=== PATIENT | male | born 1970 | race Caucasian/White ===

== ENCOUNTER 2019-10-20 04:13 | Observation (INO) | payer BC, OTHER ==
[~2019-10-20] VITALS: Ht 183 cm; Wt 93.0 kg
[2019-10-20] VITALS (15 sets, daily range): BP systolic 109–175; BP diastolic 69–100
[2019-10-20] MEDS ORDERED: METO50TA7 (04:32)
[2019-10-20] MEDS ORDERED: DIGO250T3 (04:32)
[2019-10-20] MEDS ORDERED: HYDR12.56 (04:32)
[2019-10-20] MEDS ORDERED: LACTATED RINGERS 1,000 ML IV ONE (04:37)
[2019-10-20 04:45] LABS: BASOPHILS % (AUTO) 0 % (0-10); EOSINOPHILS # (AUTO) 0.1 10^3/uL (0.0-0.3); EOSINOPHILS % (AUTO) 1 % (0-10); HEMATOCRIT 44 % (40-54); HEMOGLOBIN 15.5 G/DL (13.3-17.7); LYMPHOCYTES # (AUTO) 2.3 X 10^3 (1.0-4.0); LYMPHOCYTES % (AUTO) 33 % (12-44); MEAN CORPUSCULAR HEMOGLOBIN 29 PG (25-34); MEAN CORPUSCULAR HGB CONC 35 G/DL (32-36); MEAN CORPUSCULAR VOLUME 83 FL (80-99); MEAN PLATELET VOLUME 11.3 FL (7.4-10.4); MONOCYTES # (AUTO) 0.6 X 10^3 (0.0-1.0); MONOCYTES % (AUTO) 8 % (0-12); NEUTROPHILS % (AUTO) 58 % (42-75); PLATELET COUNT 158 10^3/uL (130-400); RED CELL DISTRIBUTION WIDTH 14.1 % (10.0-14.5); WHITE BLOOD COUNT 6.9 10^3/uL (4.3-11.0)
[2019-10-20] MEDS ORDERED: ONDANSETRON 4 MG/2 ML (SDV) Z0FRAN IVP ONE (04:45)
[2019-10-20] MEDS ORDERED: PANTOPRAZOLE 40 MG (PROTONIX) VIAL IV ONE (04:45)
--- NOTE | 2019-10-20 04:45 | NUR ---
urinal provided, urine specime requested.
--- NOTE | 2019-10-20 04:45 | ED Abdominal Pain ---
General Chief Complaint: Cardiac/General Problems Stated Complaint: LOWER CHEST/ABD PAIN Nursing Triage Note: EPIGASTRIC PAIN X3 HRS. VOMITTING X3HRS (4 TIMES) Sepsis Screen: No Definite Risk Source of Information: Patient (MARIA MAJOR DO) History of Present Illness Date Seen by Provider: Oct 20, 2019 Time Seen by Provider: 04:30 Initial Comments PT ARRIVES VIA POV FROM HOME C/O SEVERE EPIGASTRIC PAIN X 3 HOURS--WOKE HIM FROM SLEEP PAIN IS CONSTANT, NOTHING WORSENS OR IMPROVES PAIN STATES PAIN IS SQUEEZING AT TIMES HAS HAD NAUSEA AND VOMITED X 3-4 SINCE PAIN BEGAN NO DIARRHEA, HAD NORMAL BM THIS AFTERNOON NO FEVER NO SHORTNESS OF BREATH NO HISTORY OF SIMILAR PT HAS HISTORY OF ATRIAL FIBRILLATION AND IS NO TOPROL, HCTZ AND DIGOXIN HAD OPEN HEART SURGERY AT AGE 12 FOR TRICUSPID VALVE REPAIR STATES HE HAS BEEN ON DIGOXIN "ALL MY LIFE" PCP: NONE ASSISTANT PARALEGAL: SONYA SALGADO (MARIA MAJOR DO) Allergies and Home Medications Allergies Coded Allergies: No Known Drug Allergies (Unverified , 10/20/19) Patient Home Medication List Home Medication List Reviewed: Yes (LIZET MICHAUD) Review of Systems Review of Systems Constitutional: no symptoms reported EENTM: No Symptoms Reported Respiratory: No Symptoms Reported Cardiovascular: Denies Chest Pain Gastrointestinal: See HPI, Abdominal Pain, Nausea, Vomiting Genitourinary: No Symptoms Reported Musculoskeletal: no symptoms reported Skin: no symptoms reported Psychiatric/Neurological: No Symptoms Reported Endocrine: No Symptoms Reported Hematologic/Lymphatic: No Symptoms Reported (MARIA MAJOR DO) Past Mxceirf-Gesckw-Xbzsao Hx Patient Social History Alcohol Use: Occasionally Uses Number of Drinks Today: 2 Alcohol Beverage of Choice: Beer Recreational Drug Use: No Smoking Status: Never a Smoker 2nd Hand Smoke Exposure: No Recent Foreign Travel: No Contact w/Someone Who Travel: No Recent Infectious Disease Expo: No Recent Hopitalizations: No Physical Abuse: No Sexual Abuse: No Mistreated: No Fear: No (MARIA MAJOR DO) Immunizations Up To Date Tetanus Booster (TDap): Unknown (MARIA MAJOR DO) Seasonal Allergies Seasonal Allergies: No (MARIA MAJOR DO) Past Medical History Surgeries: Yes (OPEN HEART AGE 12 / TRICUSPID VALVE REPAIR) Cardiac Respiratory: No Cardiac: Yes (AFIB-HX OF CARDIOVERSION; TRICUSPID VALVE REPAIR AGE 12) Atrial Fibrillation, Congenital Heart Disease, Hypertension, Valvular Heart Disease Neurological: No Genitourinary: No Gastrointestinal: No Musculoskeletal: No Endocrine: No HEENT: No Cancer: No Psychosocial: No Integumentary: No Blood Disorders: No (MROIAH,MARIA K DO) Physical Exam Vital Signs Vital Signs - First Documented 10/20/19 04:24 Temp 36.4 Pulse 68 Resp 18 B/P (MAP) 155/96 (115) Pulse Ox 100 O2 Delivery Room Air (LIZET MICHAUD) Vital Signs Capillary Refill : Less Than 3 Seconds (MORIAHMARIA K DO) Height/Weight/BMI Height: '" Weight: lbs. oz. kg; 27.00 BMI Method: General Appearance: WD/WN, no apparent distress, other (ANXIOUS) Neck: normal inspection Respiratory: chest non-tender, normal breath sounds, no respiratory distress, no accessory muscle use Cardiovascular: normal peripheral pulses, regular rate, rhythm, no JVD Gastrointestinal: normal bowel sounds, soft, no organomegaly, no pulsatile mass, guarding, tenderness (DIFFUSE TENDERNESS ALL ACROSS UPPER ABDOMEN, BUT IS MOST TENDER IN EPIGASTRIC AREA, WITH GUARDING OF EPIGASTRIC AREA. ); No hernia, No mass Extremities: normal inspection, no pedal edema, normal capillary refill Neurologic/Psychiatric: grocery manager II-XII nml as tested, no motor/sensory deficits, alert, oriented x 3, other (ANXIOUS) Skin: normal color, warm/dry; No rash (MORIAHMARIA K DO) Progress/Results/Core Measures Results/Orders Lab Results Laboratory Tests Test 10/20/19 04:35 10/20/19 05:20 Range/Units White Blood Count 6.9 4.3-11.0 10^3/uL Red Blood Count 5.33 4.35-5.85 10^6/uL Hemoglobin 15.5 13.3-17.7 G/DL Hematocrit 44 40-54 % Mean Corpuscular Volume 83 80-99 FL Mean Corpuscular Hemoglobin 29 25-34 PG Mean Corpuscular Hemoglobin Concent 35 32-36 G/DL Red Cell Distribution Width 14.1 10.0-14.5 % Platelet Count 158 130-400 10^3/uL Mean Platelet Volume 11.3 H 7.4-10.4 FL Neutrophils (%) (Auto) 58 42-75 % Lymphocytes (%) (Auto) 33 12-44 % Monocytes (%) (Auto) 8 0-12 % Eosinophils (%) (Auto) 1 0-10 % Basophils (%) (Auto) 0 0-10 % Neutrophils # (Auto) 4.0 1.8-7.8 X 10^3 Lymphocytes # (Auto) 2.3 1.0-4.0 X 10^3 Monocytes # (Auto) 0.6 0.0-1.0 X 10^3 Eosinophils # (Auto) 0.1 0.0-0.3 10^3/uL Basophils # (Auto) 0.0 0.0-0.1 10^3/uL Prothrombin Time 13.1 12.2-14.7 SEC INR Comment 1.0 0.8-1.4 Activated Partial Thromboplast Time 29 24-35 SEC Sodium Level 137 135-145 MMOL/L Potassium Level 4.2 3.6-5.0 MMOL/L Chloride Level 99 98-107 MMOL/L Carbon Dioxide Level 23 21-32 MMOL/L Anion Gap 15 H 5-14 MMOL/L Blood Urea Nitrogen 24 H 7-18 MG/DL Creatinine 1.19 0.60-1.30 MG/DL Estimat Glomerular Filtration Rate > 60 BUN/Creatinine Ratio 20 Glucose Level 142 H 70-105 MG/DL Calcium Level 9.8 8.5-10.1 MG/DL Corrected Calcium 8.5-10.1 MG/DL Magnesium Level 2.0 1.6-2.4 MG/DL Total Bilirubin 1.7 H 0.1-1.0 MG/DL Aspartate Amino Transf (AST/SGOT) 29 5-34 U/L Alanine Aminotransferase (ALT/SGPT) 44 0-55 U/L Alkaline Phosphatase 92 40-136 U/L Total Creatine Kinase 299 H 30-200 U/L Creatine Kinase MB 1.6 <6.6 NG/ML Myoglobin 123.0 H 10.0-92.0 NG/ML Troponin I < 0.028 <0.028 NG/ML B-Type Natriuretic Peptide < 10.0 <100.0 PG/ML Total Protein 7.5 6.4-8.2 GM/DL Albumin 4.6 H 3.2-4.5 GM/DL Amylase Level 45 25-125 U/L Lipase 25 8-78 U/L Digoxin Level 0.40 L 0.80-2.00 NG/ML Serum Alcohol < 10 <10 MG/DL Urine Color YELLOW Urine Clarity CLEAR Urine pH 6.0 5-9 Urine Specific [place] 1.020 1.016-1.022 Urine Protein TRACE H NEGATIVE Urine Glucose (UA) NEGATIVE NEGATIVE Urine Ketones 2+ H NEGATIVE Urine Nitrite POSITIVE H NEGATIVE Urine Bilirubin NEGATIVE NEGATIVE Urine Urobilinogen 1.0 < = 1.0 MG/DL Urine Leukocyte Esterase NEGATIVE NEGATIVE Urine RBC (Auto) NEGATIVE NEGATIVE Urine RBC NONE /HPF Urine WBC NONE /HPF Urine Squamous Epithelial Cells 0-2 /HPF Urine Crystals NONE /LPF Urine Bacteria TRACE /HPF Urine Casts PRESENT /LPF Urine Hyaline Casts 0-2 H /LPF Urine Mucus NEGATIVE /LPF Urine Culture Indicated NO (LIZET MICHAUD) Medications Given in ED Current Medications Medications Dose Ordered Sig/Kartik Route Start Time Stop Time Status Last Admin Dose Admin Iohexol 100 ml ONCE ONCE IV 10/20/19 05:45 10/20/19 05:46 DC 10/20/19 05:43 100 ML Lactated Ringer's 1,000 ml @ 0 mls/hr Q0M ONCE IV 10/20/19 04:37 10/20/19 04:40 DC 10/20/19 04:45 0 MLS/HR Ondansetron HCl 4 mg ONCE ONCE IVP 10/20/19 04:45 10/20/19 04:46 DC 10/20/19 04:45 4 MG Pantoprazole 40 mg ONCE ONCE IV 10/20/19 04:45 10/20/19 04:46 DC 10/20/19 04:45 40 MG Sodium Chloride 80 ml ONCE ONCE IV 10/20/19 05:45 10/20/19 05:46 DC 10/20/19 05:43 80 ML (LIZET MICHAUD) Vital Signs/I&O 10/20/19 04:24 Temp 36.4 Pulse 68 Resp 18 B/P (MAP) 155/96 (115) Pulse Ox 100 O2 Delivery Room Air (LIZET MICHAUD) Blood Pressure Mean: 115 Progress Progress Note : Time: 06:40 Progress Note Assume care of the patient. Patient came in for her low chest epigastric pain that woke him from sleep. He has a moderate elevation of his total bilirubin and a large gallbladder with stones/sludge in the neck which could be consistent with a biliary colic/obstructive process. Alkaline phosphatase and AST/ALT are not elevated at this point. There does not appear to be acute infection on imaging. He does have a heart history of atrial fibrillation, right bundle branch block, and tricuspid repair as a teenager. The patient has received a PPI, anti-medic, and a total of 100 g fentanyl. The patient states that after the fentanyl his pain is tolerable. It started in his epigastric region when he points just over his stomach. He says now it is entirely abdominal. His pain was never contained in his thoracic cavity. His initial one and a half hour troponin after the onset of pain is negative. He does not have a prior history of coronary artery disease. It is thought much less likely at this point to be related to coronary disease. (LIZET MICHAUD) Initial ECG Impression Date: Oct 20, 2019 Initial ECG Impression Time: 04:43 Initial ECG Rate: 68 Initial ECG Rhythm: Normal Sinus Initial ECG Intervals: QT Initial ECG Impression: Normal, Nonspecific Changes Initial ECG Comparisson: No Previous ECG Available Comment Right bundle-branch block. No clinically relevant ST elevation or depression. (LIZET MICHAUD) Diagnostic Imaging Diagonstic Imaging: Xray Plain Films/CT/US/NM/MRI: chest (1v) Comments [facility], [place] NAME: JASON MASSEY [facility] REC#: [id number] PT STATUS: REG ER : 1970 PHYSICIAN: MARIA MAJOR DO ADMIT DATE: 10/20/19/ER Draft Date of Exam:10/20/19 CHEST 1 VIEW, AP/PA ONLY EXAM: CHEST 1 VIEW, AP/PA ONLY INDICATION: Chest pain. COMPARISON: None. FINDINGS: Normal heart size and central pulmonary vascularity. Sternotomy. No focal pulmonary opacity, pleural effusion or pneumothorax. No acute osseous findings. IMPRESSION: No acute cardiopulmonary findings. Dictated on workstation # [id number] Dict: 10/20/1925 Trans: 10/20/19 0646 [facility] [id number] Interpreted by: HECTOR GROSSMAN MD Electronically signed by: Reviewed: Reviewed by Me Diagonstic Imaging: CT (angiogram) Plain Films/CT/US/NM/MRI: chest Comments NAME: JASON MASSEY [facility] REC#: [id number] PT STATUS: REG ER : 1970 PHYSICIAN: MARIA MAJOR DO ADMIT DATE: 10/20/19/ER Draft Date of Exam:10/20/19 CT KIRIT CHEST/NOANG ABD-PELV W EXAM: CT KIRIT CHEST/NOANG ABD-PELV W Thin axial sections through the chest, abdomen and pelvis are obtained following intravenous contrast bolus. Multiplanar MIP images were reconstructed and reviewed. All CT scans use one or more of the following dose optimizing techniques: automated exposure control, MA and/or KvP adjustment based on patient size and exam type or iterative reconstruction. INDICATION: Chest and abdominal pain. COMPARISON: Chest radiograph 10/20/2019. FINDINGS: CTA CHEST: Examination is mildly limited by respiratory motion. No large or central pulmonary emboli. Normal caliber thoracic aorta. Cardiomegaly. No pericardial effusion. No mediastinal, hilar or axillary lymphadenopathy. No dense consolidation in the lungs. No pleural effusion or pneumothorax. Sternotomy. Osseous structures are intact. CT ABDOMEN AND PELVIS: Small esophageal hiatal hernia. Cholelithiasis without secondary findings of cholecystitis. The liver, pancreas, spleen, adrenals, kidneys, collecting systems and bladder negative. Normal appendix. Normal caliber abdominal aorta. Moderate colonic diverticulosis without evidence of active diverticulitis. No free intraperitoneal air or fluid. No lymphadenopathy. No evidence of bowel obstruction. No acute osseous findings. IMPRESSION: 1. No large or central pulmonary emboli. 2. Cardiomegaly. 3. Cholelithiasis without cholecystitis. 4. Moderate diverticulosis without diverticulitis. 5. Small esophageal hiatal hernia. Dictated on workstation # [id number] Dict: 10/20/19 0643 Trans: 10/20/19 0705 [facility] [id number] Interpreted by: HECTOR GROSSMAN MD Electronically signed by: Reviewed: [facility] Reviewed by Me (LIZET MICHAUD) Departure Communication (Admissions) Time/Spoke to Admitting Phy: 07:34 Discussed the case with Dr. Downs and he agrees to observe the patient on cardiac stepdown with consult cardiology and general surgery. Time/Spoke to Consulting Phy: 07:10 Discussed the case with Dr. Eagle. He would agree to consult on the case if medicine will observe. He would like cardiac clearance. He would also like us to cover the patient with antibiotics. 0715: Discussed the case with Dr. Irene, cardiology. He agrees to consult on the case. He would like the patient placed on cardiac stepdown and obtain a 2-D echocardiogram. He would like us to work on obtaining medical records. (LIZET MICHAUD) Impression Primary Impression: Biliary colic Additional Impressions: Cholelithiasis Qualified Codes: K80.21 - Calculus of gallbladder without cholecystitis with obstruction Total bilirubin, elevated Disposition: ADMITTED INPATIENT Condition: Stable Admissions Decision to Admit Reason: Admit from ER (General) Decision to Admit/Date: Oct 20, 2019 Time/Decision to Admit Time: 07:00 (LIZET MICHAUD) MARIA MAJOR DO Oct 20, 2019 04:45 LIZET MICHAUD Oct 20, 2019 07:00
[2019-10-20 04:57] LABS: PROTHROMBIN TIME PATIENT 13.1 SEC (12.2-14.7)
[2019-10-20] MEDS ORDERED: fentaNYL INJECTION 100 MCG/2 ML AMP IVP STA ×2 (05:08→06:23)
[2019-10-20 05:12] LABS: ALANINE AMINOTRANSFERASE 44 U/L (0-55); ALBUMIN 4.6 GM/DL (3.2-4.5); ALKALINE PHOSPHATASE 92 U/L (40-136); AMYLASE 45 U/L (25-125); BILIRUBIN,TOTAL 1.7 MG/DL (0.1-1.0); BUN/CREATININE RATIO 20; CALCIUM 9.8 MG/DL (8.5-10.1); CARBON DIOXIDE 23 MMOL/L (21-32); CHLORIDE 99 MMOL/L (98-107); CREATINE KINASE 299 U/L (30-200); CREATINE KINASE MB 1.6 NG/ML (<6.6); CREATININE SERUM 1.19 MG/DL (0.60-1.30); GFR ESTIMATED > 60; GLUCOSE 142 MG/DL (70-105); LIPASE 25 U/L (8-78); POTASSIUM 4.2 MMOL/L (3.6-5.0); SODIUM 137 MMOL/L (135-145); TOTAL PROTEIN 7.5 GM/DL (6.4-8.2)
--- NOTE | 2019-10-20 05:26 | NUR ---
pt's updated on plan of care et. anticipated wait times for results with pt's consent.
[2019-10-20] MEDS ORDERED: IOHEXOL 350 MG/ML 100 ML (OMNIPAQUE 350) VIAL IV ONE (05:45)
[2019-10-20] MEDS ORDERED: NS 100 ML (IVPB) BAG IV ONE (05:45)
[2019-10-20 05:47] LABS: BILIRUBIN,URINE NEGATIVE (NEGATIVE); CLARITY,URINE CLEAR; COLOR,URINE YELLOW; GLUCOSE, URINE (UA) NEGATIVE (NEGATIVE); KETONES,URINE 2+ (NEGATIVE); LEUKOCYTE ESTERASE ,URINE NEGATIVE (NEGATIVE); NITRITE,URINE POSITIVE (NEGATIVE); PROTEIN,URINE TRACE (NEGATIVE)
[2019-10-20 05:51] LABS: BACTERIA,URINE TRACE /HPF; HYALINE CASTS, URINE 0-2 /LPF; SQUAMOUS EPITHELIAL CELL,UR 0-2 /HPF
--- NOTE | 2019-10-20 06:47 | Diagnostic Imaging Report ---
EXAM: CHEST 1 VIEW, AP/PA ONLY INDICATION: Chest pain. COMPARISON: None. FINDINGS: Normal heart size and central pulmonary vascularity. Sternotomy. No focal pulmonary opacity, pleural effusion or pneumothorax. No acute osseous findings. IMPRESSION: No acute cardiopulmonary findings. Dictated by: Dictated on workstation # [id number]
--- NOTE | 2019-10-20 07:06 | Diagnostic Imaging Report ---
EXAM: CT KIRIT CHEST/NOANG ABD-PELV W Thin axial sections through the chest, abdomen and pelvis are obtained following intravenous contrast bolus. Multiplanar MIP images were reconstructed and reviewed. All CT scans use one or more of the following dose optimizing techniques: automated exposure control, MA and/or KvP adjustment based on patient size and exam type or iterative reconstruction. INDICATION: Chest and abdominal pain. COMPARISON: Chest radiograph 10/20/2019. FINDINGS: CTA CHEST: Examination is mildly limited by respiratory motion. No large or central pulmonary emboli. Normal caliber thoracic aorta. Cardiomegaly. No pericardial effusion. No mediastinal, hilar or axillary lymphadenopathy. No dense consolidation in the lungs. No pleural effusion or pneumothorax. Sternotomy. Osseous structures are intact. CT ABDOMEN AND PELVIS: Small esophageal hiatal hernia. Cholelithiasis without secondary findings of cholecystitis. The liver, pancreas, spleen, adrenals, kidneys, collecting systems and bladder negative. Normal appendix. Normal caliber abdominal aorta. Moderate colonic diverticulosis without evidence of active diverticulitis. No free intraperitoneal air or fluid. No lymphadenopathy. No evidence of bowel obstruction. No acute osseous findings. IMPRESSION: 1. No large or central pulmonary emboli. 2. Cardiomegaly. 3. Cholelithiasis without cholecystitis. 4. Moderate diverticulosis without diverticulitis. 5. Small esophageal hiatal hernia. Dictated by: Dictated on workstation # [id number]
[2019-10-20] MEDS ORDERED: ANTACID SUSP 30 ML UDC (MYLANTA) PO ONE (07:45)
[2019-10-20] MEDS ORDERED: cefTRIAXone FOR IV USE 1,000 MG in WATER (STERILE) FOR INJECTION 10 ML IV ONE (07:45)
[2019-10-20] MEDS ORDERED: LIDOCAINE 2% VISCOUS 15 ML UDC PO ONE (07:45)
[2019-10-20] MEDS ORDERED: fentaNYL INJECTION 100 MCG/2 ML AMP IVP ONE (08:00)
[2019-10-20] MEDS ORDERED: fentaNYL INJECTION 100 MCG/2 ML AMP IV PRN (08:45)
[2019-10-20] MEDS ORDERED: ANTACID SUSP 30 ML UDC (MYLANTA) PO PRN (08:45)
[2019-10-20] MEDS ORDERED: ONDANSETRON 4 MG/2 ML (SDV) Z0FRAN IV PRN (08:45)
[2019-10-20] MEDS: LACTATED RINGERS 1,000 ML IV SCH ×3 (08:58→19:25)
[2019-10-20] MEDS ORDERED: DIGOXIN 0.25 MG (LANOXIN) TAB PO SCH (09:00)
[2019-10-20] MEDS ORDERED: meTOprolol TARTRATE 50 MG (LOPRESSOR) TAB PO SCH (09:00)
[2019-10-20] MEDS ORDERED: HYDROmorphone 2 MG/ML VIAL (DILAUDID) IV PRN (09:00)
--- NOTE | 2019-10-20 09:31 | NUR ---
THIS NURSE CLARIFIED WITH DR SPIVEY PT IS TO TAKE MORNING DIGOXIN AND METOPROLOL. WILL CONTINUE TO MONITOR.
--- NOTE | 2019-10-20 10:25 | Consultation - Surgery ---
FARRUKHJERMAINE MED STUDENT 10/20/19 1024: History of Present Illness History of Present Illness Patient Consulted On(susan/time) 10/20/19 10:19 Date Seen by Provider: Oct 20, 2019 Time Seen by Provider: 10:15 History of Present Illness Consult requested by Dr. Downs for cholelithiasis Pt presents with epigastric abdominal pain that has now migrated into his RUQ and LUQ. Pain is more severe in the RUQ and he describes it as a stabbing pain. Tenderness to palpation noted. He has had some relief from the pain by reducing movement and pain medication. Nothing makes it worse. States he woke up in the middle of the night and had an episode of nausea associated with 3-4 episodes of vomiting. No history of prior abdominal surgery but has had cardioversion for afib. Had a normal BM yesterday and last meal was last night. Has not noticed any flatulence. Denies any new n/v since his episode. Denies fever, chills, sob, chest pain. Allergies and Home Medications Allergies Coded Allergies: No Known Drug Allergies (Unverified , 10/20/19) Past Jwanidf-Kjlncj-Dlrxww Hx Patient Social History Alcohol Use: Occasionally Uses Number of Drinks Today: 2 Recreational Drug Use: No Smoking Status: Never a Smoker 2nd Hand Smoke Exposure: No Recent Foreign Travel: No Contact w/Someone Who Travel: No Recent Infectious Disease Expo: No Recent Hopitalizations: No Immunizations Up To Date Tetanus Booster (TDap): Unknown Seasonal Allergies Seasonal Allergies: No Surgeries History of Surgeries: Yes (OPEN HEART AGE 12 / TRICUSPID VALVE REPAIR) Surgeries: Cardiac Respiratory History of Respiratory Disorde: No Cardiovascular History of Cardiac Disorders: Yes (AFIB-HX OF CARDIOVERSION; TRICUSPID VALVE REPAIR AGE 12) Cardiac Disorders: Atrial Fibrillation, Congenital Heart Disease, Hypertension, Valvular Heart Disease Neurological History of Neurological Disord: No Genitourinary History of Genitourinary Disor: No Gastrointestinal History of Gastrointestinal Di: No Musculoskeletal History of Musculoskeletal Dis: No Endocrine History of Endocrine Disorders: No HEENT History of HEENT Disorders: No Cancer History of Cancer: No Psychosocial History of Psychiatric Problem: No Integumentary History of Skin or Integumenta: No Blood Transfusions History of Blood Disorders: No Review of Systems-General Constitutional: No chills, No fever EENTM: other (yellow sclera ); No blurred vision, No double vision Respiratory: No cough, No dyspnea on exertion Cardiovascular: No chest pain, No palpitations Gastrointestinal: abdominal pain (RUQ LUQ); No constipation, No diarrhea, No hematemesis; jaundice; No melena; nausea, vomiting Genitourinary: No decreased output, No dysuria, No frequency Musculoskeletal: No muscle stiffness, No muscle cramps Skin: No pruritus, No rash Psychiatric/Neurological: Denies Anxiety, Denies Depressed, Denies Emotional Problems Physical Exam-General Problems Physical Exam Vital Signs Vital Signs - First Documented 10/20/19 10/20/19 04:24 09:05 Temp 36.4 Pulse 68 Resp 18 B/P (MAP) 155/96 (115) Pulse Ox 100 O2 Delivery Room Air O2 Flow Rate 2.00 Capillary Refill : Less Than 3 Seconds General Appearance: WD/WN, no apparent distress Eyes: Bilateral Eye Normal Inspection HEENT: scleral icterus (R), scleral icterus (L); No photophobia Neck: non-tender, supple Respiratory: chest non-tender, no respiratory distress, no accessory muscle use Cardiovascular: normal peripheral pulses, regular rate, rhythm, no edema Gastrointestinal: soft, tenderness Back: normal inspection, no CVA tenderness Extremities: normal range of motion, non-tender, normal inspection Neurologic/Psychiatric: alert, normal mood/affect, oriented x 3 Skin: warm/dry, jaundice Data Review Labs Laboratory Tests 10/20/19 04:35: White Blood Count 6.9, Red Blood Count 5.33, Hemoglobin 15.5, Hematocrit 44, Mean Corpuscular Volume 83, Mean Corpuscular Hemoglobin 29, Mean Corpuscular Hemoglobin Concent 35, Red Cell Distribution Width 14.1, Platelet Count 158, Mean Platelet Volume 11.3H, Neutrophils (%) (Auto) 58, Lymphocytes (%) (Auto) 33, Monocytes (%) (Auto) 8, Eosinophils (%) (Auto) 1, Basophils (%) (Auto) 0, Neutrophils # (Auto) 4.0, Lymphocytes # (Auto) 2.3, Monocytes # (Auto) 0.6, Eosinophils # (Auto) 0.1, Basophils # (Auto) 0.0, Prothrombin Time 13.1, INR Comment 1.0, Activated Partial Thromboplast Time 29, Sodium Level 137, Potassium Level 4.2, Chloride Level 99, Carbon Dioxide Level 23, Anion Gap 15H, Blood Urea Nitrogen 24H, Creatinine 1.19, Estimat Glomerular Filtration Rate > 60, BUN/Creatinine Ratio 20, Glucose Level 142H, Calcium Level 9.8, Corrected Calcium , Magnesium Level 2.0, Total Bilirubin 1.7H, Aspartate Amino Transf (AST/SGOT) 29, Alanine Aminotransferase (ALT/SGPT) 44, Alkaline Phosphatase 92, Total Creatine Kinase 299H, Creatine Kinase MB 1.6, Myoglobin 123.0H, Troponin I < 0.028, B-Type Natriuretic Peptide < 10.0, Total Protein 7.5, Albumin 4.6H, Amylase Level 45, Lipase 25, Digoxin Level 0.40L, Serum Alcohol < 10 10/20/19 05:20: Urine Color YELLOW, Urine Clarity CLEAR, Urine pH 6.0, Urine Specific [place] 1.020, Urine Protein TRACEH, Urine Glucose (UA) NEGATIVE, Urine Ketones 2+H, Urine Nitrite POSITIVEH, Urine Bilirubin NEGATIVE, Urine Urobilinogen 1.0, Urine Leukocyte Esterase NEGATIVE, Urine RBC (Auto) NEGATIVE, Urine RBC NONE, Urine WBC NONE, Urine Squamous Epithelial Cells 0-2, Urine Crystals NONE, Urine Bacteria TRACE, Urine Casts PRESENT, Urine Hyaline Casts 0-2H, Urine Mucus NEGATIVE, Urine Culture Indicated NO Assessment/Plan Assessment/Plan Assessment/Plan cholelithiasis confirmed via CT npo robert almodovar Clinical Quality Measures DVT/VTE Risk/Contraindication: Risk Factor Score Per Nursin RFS Level Per Nursing on Admit: 1=Low/No VTE PPX DAKSHA SPIVEY DO 10/20/19 1135: History of Present Illness History of Present Illness History of Present Illness Patient is a 49 year old male that began having pain in the epigastric area of abdomen last night after going to bed. Patient states moves around upper abdomen a little bit. Stabbing type pain. Moderate to severe. Nothing seems to make it better. Pain medication a little better. Has some nausea and emesis. Had a ct scan dilated gallbladder with cholelithiasis. Denies fever sweats chills shortness of breath or chest pain. Allergies and Home Medications Allergies Coded Allergies: No Known Drug Allergies (Unverified , 10/20/19) Patient Home Medication List Home Medication List Reviewed: Yes Past Bfpxqfw-Mjupwn-Rmrphp Hx Reviewed Nursing Assessment Reviewed/Agree w Nursing PMH: Yes Family Medical History Significant Family History: No Pertinent Family Hx Review of Systems-General Constitutional: No chills, No fever EENTM: No blurred vision, No double vision Respiratory: No cough, No dyspnea on exertion Cardiovascular: No chest pain, No palpitations Gastrointestinal: abdominal pain (RUQ); No constipation, No diarrhea, No hematemesis; nausea, vomiting Genitourinary: No dysuria, No frequency Musculoskeletal: No muscle stiffness, No muscle cramps Skin: No pruritus, No rash Psychiatric/Neurological: Denies Anxiety, Denies Depressed, Denies Emotional Pr oblems All Other Systems Reviewed Negative Unless Noted: Yes (Negative excepted noted.) Physical Exam-General Problems Physical Exam General Appearance: WD/WN, no apparent distress HEENT: PERRL/EOMI, scleral icterus (R) Neck: non-tender Respiratory: chest non-tender, no respiratory distress, no accessory muscle use Cardiovascular: regular rate, rhythm Gastrointestinal: soft; No distended; tenderness (epigastric/ruq) Rectal: deferred Back: normal inspection, no CVA tenderness Extremities: normal range of motion, non-tender, normal inspection Neurologic/Psychiatric: alert, normal mood/affect, oriented x 3 Skin: normal color, warm/dry, jaundice Lymphatic: no adenopathy Assessment/Plan Assessment/Plan Assessment/Plan epigastric abdominal pain nausea and vomiting elevated bilirubin npo discussed risks and benefits of laparoscopic cholecystectomy intraoperative cholangiogram all other indicated procedures and he wishes to proceed. Discussed with Dr. Irene who is okay with us proceeding but is intermediate risk Plan to OR. Supervisory-Addendum Brief Verification & Attestation Participated in pt care: history, MDM, physical Personally performed: exam, history, MDM, supervision of care Care discussed with: Medical Student Procedures: n/a Results interpretation: Verified all documentation Verification and Attestation of Medical Student E/M Service A medical student performed and documented this service in my presence. I reviewed and verified all information documented by the medical student and made modifications to such information, when appropriate. I personally performed the physical exam and medical decision making. Daksha Spivey, Oct 20, 2019,11:37 JERMAINE CHADWICK MED STUDENT Oct 20, 2019 10:24 DAKSHA SPIVEY DO Oct 20, 2019 11:35
[2019-10-20] MEDS ORDERED: IOPAMIDOL 61% 30 ML (ISOVUE 300) VIAL ONE (11:31)
[2019-10-20] MEDS ORDERED: BUP/EPI 0.5% 1:200,000 (MARCAINE) 10ML VIAL IJ ONE (11:31)
[2019-10-20] MEDS ORDERED: fentaNYL INJECTION 100 MCG/2 ML AMP ONE (11:42)
[2019-10-20] MEDS ORDERED: GLYCOPYRROLATE 0.2 MG/ML (ROBINUL) 2 ML VIAL ONE (11:42)
[2019-10-20] MEDS ORDERED: LIDOCAINE PF 2% 5 ML (XYLOCAINE) VIAL ONE (11:42)
[2019-10-20] MEDS ORDERED: SEVOFLURANE (ULTANE) 15 ML INHAL SOLN ONE ×4 (11:42→12:48)
[2019-10-20] MEDS ORDERED: ROCURONIUM 10 MG/ML 5 ML SYRINGE IV ONE (11:42)
[2019-10-20] MEDS ORDERED: ONDANSETRON 4 MG/2 ML (SDV) Z0FRAN ONE (11:42)
[2019-10-20] MEDS ORDERED: NEOSTIGMINE 3 MG/3 ML VIAL ONE (11:42)
[2019-10-20] MEDS ORDERED: MIDAZOLAM 2 MG/2 ML (VERSED) VIAL ONE (11:42)
[2019-10-20] MEDS ORDERED: proPOfol 200 MG/20 ML (DIPRIVAN) VIAL IV ONE (11:42)
[2019-10-20] MEDS ORDERED: ceFAZolin 2 GM IV Premixed 50 ML IV ONE (11:45)
[2019-10-20] MEDS: LACTATED RINGERS 1,000 ML IV PRN ×2 (11:59→12:40)
--- NOTE | 2019-10-20 12:14 | Consultation-Cardiology ---
HPI-Cardiology Cardiology Consultation: Date of Consultation 10/20/19 Time Seen by a Provider: 11:00 Date of Admission Attending Physician Angy Downs MD Admitting Physician No,Local Physician Consulting Physician GERARDO GONZALEZ MD, MA, FACP, FACC, FSCAI, CCDS Physician requesting consult: Dr Eagle HPI: Chief Complaint: Reason for Cardiology consultation: Pre-op cardiac eval HPI 49 yo man who presented to the ER this am with relatively sudden and progressive abdominal pain associated with gen malaise and nausea and vomiting. No chest pain. No shortness of breath or palp or syncope. Does not report fever or chill. No such symptoms before Review of Systems-Cardiology Review of Systems Constitutional: As described under HPI Eyes: No vision change Ears/Nose/Throat: No ear discharge, No nasal drainage, No recent hearing loss Respiratory: As described under HPI Cardiovascular: As described under HPI Gastrointestinal: As described under HPI Genitourinary: No dysuria, No hematuria, No urine frequency changes Musculoskeletal: No back pain, No joint pain Skin: No rash, No ulcerations Psychiatric/Neurological: No seizure Hematologic: No bleeding abnormalities All Other Systems Reviewed Negative Unless Noted: Yes (Negative excepted noted.) GJM-Mabqak-Rexsbh Hx Patient Social History Alcohol Use: Occasionally Uses Recreational Drug Use: No Smoking Status: Never a Smoker 2nd Hand Smoke Exposure: No Recent Foreign Travel: No Recent Infectious Disease Expo: No Hospitalization with Isolation: Denies Immunizations Up To Date Tetanus Booster (TDap): Unknown Past Medical History PMH As described under Assessment. Family Medical History Family Medical History: Does not report fam h/o early CAD or SCD Allergies and Home Medications Allergies Coded Allergies: No Known Drug Allergies (Unverified , 10/20/19) Patient Home Medication List Home Medication List Reviewed: Yes Physical Exam-Cardiology Physical Exam Vital Signs/I&O 10/20/19 10/20/19 10/20/19 10/20/19 04:24 08:03 08:17 08:21 Temp 36.4 36.6 36.6 Pulse 68 72 68 68 Resp 18 18 18 18 B/P (MAP) 155/96 (115) 163/104 158/100 (119) 158/100 Pulse Ox 100 94 100 100 O2 Delivery Room Air Room Air Room Air 10/20/19 10/20/19 10/20/19 10/20/19 08:28 08:30 08:30 09:05 Pulse 64 Pulse Ox 95 O2 Delivery Room Air Room Air Nasal Cannula O2 Flow Rate 2.00 10/20/19 11:45 Temp 37.2 Capillary Refill : Less Than 3 Seconds Constitutional: AAO x 3, well-developed, well-nourished HEENT: EOMI, hearing is well preserved; No xanthelasmas are seen Neck: supple, carotid pulses are 2 + bilaterally Respiratory: No accessory muscle use; other (good bilat air entry) Cardiovascular: regular rate-rhythm, S1 and S2, systolic murmur (soft FIDENCIO at card base) Gastrointestinal: tender; No guarding, No rebound; audible bowel sounds Extremities: No clubbing, No cyanosis, No significant edema Neurologic/Psychiatric: oriented x 3, other (moves all limbs equally) Skin: No rash on exposed areas, No ulcerations on exposed areas Data Review Labs Laboratory Tests 10/20/19 04:35: White Blood Count 6.9, Red Blood Count 5.33, Hemoglobin 15.5, Hematocrit 44, M ghulam Corpuscular Volume 83, Mean Corpuscular Hemoglobin 29, Mean Corpuscular Hemoglobin Concent 35, Red Cell Distribution Width 14.1, Platelet Count 158, Mean Platelet Volume 11.3H, Neutrophils (%) (Auto) 58, Lymphocytes (%) (Auto) 33, Monocytes (%) (Auto) 8, Eosinophils (%) (Auto) 1, Basophils (%) (Auto) 0, Neutrophils # (Auto) 4.0, Lymphocytes # (Auto) 2.3, Monocytes # (Auto) 0.6, Eosinophils # (Auto) 0.1, Basophils # (Auto) 0.0, Prothrombin Time 13.1, INR Comment 1.0, Activated Partial Thromboplast Time 29, Sodium Level 137, Potassium Level 4.2, Chloride Level 99, Carbon Dioxide Level 23, Anion Gap 15H, Blood Urea Nitrogen 24H, Creatinine 1.19, Estimat Glomerular Filtration Rate > 60, BUN/Creatinine Ratio 20, Glucose Level 142H, Calcium Level 9.8, Corrected Calcium , Magnesium Level 2.0, Total Bilirubin 1.7H, Aspartate Amino Transf (AST/SGOT) 29, Alanine Aminotransferase (ALT/SGPT) 44, Alkaline Phosphatase 92, Total Creatine Kinase 299H, Creatine Kinase MB 1.6, Myoglobin 123.0H, Troponin I < 0.028, B-Type Natriuretic Peptide < 10.0, Total Protein 7.5, Albumin 4.6H, Amylase Level 45, Lipase 25, Digoxin Level 0.40L, Serum Alcohol < 10 10/20/19 05:20: Urine Color YELLOW, Urine Clarity CLEAR, Urine pH 6.0, Urine Specific [place] 1.020, Urine Protein TRACEH, Urine Glucose (UA) NEGATIVE, Urine Ketones 2+H, Urine Nitrite POSITIVEH, Urine Bilirubin NEGATIVE, Urine Urobilinogen 1.0, Urine Leukocyte Esterase NEGATIVE, Urine RBC (Auto) NEGATIVE, Urine RBC NONE, Urine WBC NONE, Urine Squamous Epithelial Cells 0-2, Urine Crystals NONE, Urine Bacteria TRACE, Urine Casts PRESENT, Urine Hyaline Casts 0-2H, Urine Mucus NEGATIVE, Urine Culture Indicated NO 10/20/19 10:36: Troponin I < 0.028 Laboratory Tests 10/20/19 04:35 A/P-Cardiology Assessment/Admission Diagnosis Ac abdomen H/o tricuspid valve repair at age 12, apparently for an infected tricuspid valve Moderate pulm hypertension, duration and etiology unknown No evidence of ac ND or heart failure on this admission of 10/20/19 Echo on 10/20/19: LVEF 60-65%, biatrial enlargement, PASP 60-65 mmHg, mod TR RBBB on ECG of 10/20/19. No prior ECG available for comparison H/o PAF (exercise-related) on two occasions. Last episode several years ago Systemic hypertension Chronic digoxin therapy for which the patient does not know the reason Discussion and Recomendations Cardiac risk for non-cardiac surgery is estimated to be Intermediate. We discussed the risk with Mr Zarate. He understands and wishes to proceed. We advised the patient to discuss risk with Dr Eagle prior to proceeding with surgery Have advised w/u for and f/u on pulm htn and on h/o PAF. He states he sees a sightseeing guide at [facility] and will continue to follow with him Continue patient's previous regimen Monitor labs Clinical Quality Measures DVT/VTE Risk/Contraindication: Risk Factor Score Per Nursin RFS Level Per Nursing on Admit: 1=Low/No VTE PPX GERARDO GONZALEZ MD FACP FAC CCDS Oct 20, 2019 12:14
[2019-10-20] MEDS ORDERED: LACTATED RINGERS 1,000 ML IV PRN (12:22)
[2019-10-20] MEDS ORDERED: HYDROmorphone 2 MG/ML VIAL (DILAUDID) ONE (12:40)
[2019-10-20] MEDS ORDERED: HYDR-4226 PO (12:45)
[2019-10-20] MEDS ORDERED: DOCU-143 PO (12:45)
--- NOTE | 2019-10-20 12:48 | Discharge Inst-Simple/Standard ---
Discharge Inst-Standard Discharge Medications New, Converted or Re-Newed RX: RX on Chart (2) Patient Instructions/Follow Up Plan of Care/Instructions/FU: 2 WEEKS PATRIC Activity as Tolerated: No Discharge Diet: Regular Diet Other Inst to Patient Follow up Appt: Make appointment for 2 weeks. Follow up with your regular doctor in 2-3 weeks. Instructions: No lifting greater than 10 pounds. No strenuous activity. May shower in 24 hours, no tub bath or soaking. Use incentive spirometer at home as directed. No Smoking Skin/Wound Care: You have special glue over incision, it will fall off on it's own. Symptoms to Report: Appetite Changes, Extremity Discoloration, Numbness/Tingling, Swelling Increased, Bleeding Excessive, Eyesight Changes, Pain Increased, Urine Color Change, Constipation(Persistent), Fever over 101 degree F, Pain/Pressure in chest, Urinating Difficulty, Cough Up/Vomit Blood, Heart Beat Irreg/Pounding, Pa in/Pressure in jaw, Vaginal Bleeding Increase, Cramps in feet or legs, Lightheadedness, Pain/Pressure in shoulder, Diarrhea(Persistent), Memory Changes Suddenly, Questions/Concerns, Weight gain consecutive days, Dizziness/Fainting, Nausea/Vomiting, Shortness of Breath, Weight gain over 2 pounds. If eyes or skin turn yellow notify physician. If questions or concerns contact your physician Or seek help at emergency department. DAKSHA SPIVEY DO Oct 20, 2019 12:48
--- NOTE | 2019-10-20 12:52 | Progress Note-Post Operative ---
Post-Operative Progess Note Surgeon (s)/Client Service Associate (s) Surgeon DAKSHA SPIVEY DO Client Service Associate: Dr. Weaver to assist in retraction dissection and closure Pre-Operative Diagnosis epigastric abd pain, n/v, cholelithiasis Post-Operative Diagnosis gangrenous gallbladder, cholelithiasis Procedure & Operative Findings Date of Procedure 10/20/19 Procedure Performed/Findings PROCEDURE: Laparoscopic cholecystectomy with intraoperative cholangiogram. COMPLICATIONS: None. PROCEDURE: The patient was taken to the operating suite and was prepped and draped in sterile fashion. A surgical pause was performed. Just superior to the umbilicus, a 12 mm incision was made. Dissection was taken down to the fascia, which was then scored and grasped with a Antony and the abdomen was then entered. A 0 Vicryl suture was placed in a [id number] fashion and a Conte trocar was placed and secured. Pneumoperitoneum was achieved. A 5mm trochar place in the subxyphoid and 2 in the right upper quadrant. The gallbladder was then grasped and elevated. Distended gallbladder gangrenous and when grasped ruptured. The cystic duct, and cystic artery were then dissected out. Clip was placed on the distal portion of the cystic duct which was then partially transected. An arrow catheter was inserted into the duct. The cholangiogram was then performed. No filing defects and contrast made its way into the duodenum. Catheter removed. Clips were placed on proximal portion of the cystic duct and then the duct was then transected. Clips were placed along the proximal and distal portion of the cystic artery which was then transected. Hook cautery was used to dissect the gallbladder from the gallbladder fossa achieving hemostasis. The gallbladder was placed in an Endobag and removed through the 12 mm trocar site. The abdomen was then reinspected. Copious amounts of irrigation were used to irrigate the abdomen and there were no signs of active bleeding. Hemostasis had been achieved. The 12 mm fascial defect was then closed with 0 Vicryl suture that had been placed in a [id number] fashion. The abdomen was then desufflated, the trocars were removed. The abdomen was then washed and dried. The skin was then closed using 4-0 Monocryl in a subcuticular fashion. The abdomen was washed and dried and Skin Affix was place over incisions. Patient tolerated the procedure well without any complications and was taken to the recovery room in stable condition. Anesthesia Type general Estimated Blood Loss Estimated blood loss (mL): min Specimens/Packing Specimens Removed gallbladder DAKSHA SPIVEY DO Oct 20, 2019 12:52
--- NOTE | 2019-10-20 13:10 | Diagnostic Imaging Report ---
INDICATION: Cholecystectomy Operative cholangiogram performed in the routine fashion with contrast injection via the cystic duct stump. Contrast fills the biliary tree. There is no biliary dilatation. There are no filling defects in the common duct. Contrast passes through the duodenum without obstruction. 14 seconds of fluoroscopy time was used. IMPRESSION: Unremarkable operative cholangiogram. Dictated by: Dictated on workstation # [id number]
--- NOTE | 2019-10-20 13:34 | History & Physical-Hospitalist ---
History of Present Illness HPI/Chief Complaint Paras Zarate is a 49-year-old male with past medical history of hypertension, atrial fibrillation, tricuspid valve repair, who presented with epigastric abdominal pain. He reports that the pain had started in the center upper part of his abdomen but is now moved to the sides. He denies any radiation to his back or shoulder. He denies any nausea or vomiting. He denies any fevers or chills. He denies any shortness of breath or cough. He reports having some diarrhea this morning. He says that he has never had any history of heart disease. When he was about 12 years old he had chickenpox and the infection c aused an issue with his tricuspid valve which required repair but no artificial valves were placed. He takes medications for atrial fibrillation but is not on anticoagulation. Source: patient Exam Limitations: no limitations Date Seen 10/20/19 Time Seen by a Provider: 09:25 Attending Physician Angy Watkins MD PCP No,Local Physician Referring Physician Date of Admission Oct 20, 2019 at 07:34 Home Medications & Allergies Home Medications Reviewed patient Home Medication Reconciliation performed by pharmacy medication reconciliations emergency spill response technician and/or nursing. Patients Allergies have been reviewed. Allergies Allergies Coded Allergies No Known Drug Allergies (Unverified10/20/19) Past Xmryzbt-Ecspkg-Ahhpkv Hx Past Med/Social Hx: Reviewed Nursing Past Med/Soc Hx Patient Social History Alcohol Use: Occasionally Uses Number of Drinks Today: 2 Alcohol Beverage of Choice: Beer Recreational Drug Use: No Smoking Status: Never a Smoker 2nd Hand Smoke Exposure: No Recent Foreign Travel: No Contact w/other who traveled: No Recent Hopitalizations: No Recent Infectious Disease Expo: No Immunizations Up To Date Tetanus Booster (TDap): Unknown Seasonal Allergies Seasonal Allergies: No Past Medical History Surgeries: Cardiac Currently Using CPAP: No Currently Using BIPAP: No Cardiac: Atrial Fibrillation, Congenital Heart Disease, Hypertension, Valvular Heart Disease History of Blood Disorders: No Family History No Pertinent Family Hx Review of Systems Constitutional: no symptoms reported EENTM: no symptoms reported Respiratory: no symptoms reported Cardiovascular: no symptoms reported Gastrointestinal: abdominal pain Genitourinary: no symptoms reported Musculoskeletal: no symptoms reported Skin: no symptoms reported Psychiatric/Neurological: No Symptoms Reported Physical Exam Physical Exam Vital Signs Vital Signs - First Documented 10/20/19 10/20/19 04:24 09:05 Temp 36.4 Pulse 68 Resp 18 B/P (MAP) 155/96 (115) Pulse Ox 100 O2 Delivery Room Air O2 Flow Rate 2.00 Capillary Refill : Less Than 3 Seconds Height, Weight, BMI Height: '" Weight: lbs. oz. kg; 27.77 BMI Method: General Appearance: WD/WN, Mild Distress (uncomfortable) Respiratory: Lungs Clear, Normal Breath Sounds, No Respiratory Distress Cardiovascular: Regular Rate, Rhythm, No Edema, No Murmur Gastrointestinal: Normal Bowel Sounds, Soft; No Distended, No Guarding, No Rebound; Tenderness Extremity: Normal Inspection, Non Tender, No Pedal Edema Neurologic/Psychiatric: Alert, Oriented x3, No Motor/Sensory Deficits, Normal Mood/Affect Skin: Normal Color, Warm/Dry Results Results/Procedures Labs Laboratory Tests 10/20/19 04:35 Patient resulted labs reviewed. Imaging: Reviewed Imaging Report Assessment/Plan Admission Diagnosis cholelithiasis with acute cholecystitis Admission Status: Inpatient Order (span 2 midnights) Reason for Inpatient Admission: cholecystitis requiring surgical intervention Assessment and Plan Cholelithiasis with acute cholecystitis Gangrenous cholecystitis epigastric pain on arrival Total bilirubin mildly elevated CT revealed cholelithiasis Troponin negative 2 echocardiogram performed and indicated pulmonary hypertension Cardiology consulted for cardiac clearance, appreciate assistance general surgery consulted, appreciate assistance Performed cholecystectomy which revealed gangrenous gallbladder Hypertension Atrial fibrillation Hold home meds for now, will resume when able DVT prophylaxis: SCDs, begin Lovenox when okay with surgery Diagnosis/Problems Diagnosis/Problems (1) Cholelithiasis and acute cholecystitis without obstruction Status: Acute (2) Gangrenous cholecystitis Status: Acute (3) HTN (hypertension) Status: Chronic Qualifiers: Hypertension type: essential hypertension Qualified Codes: I10 - Essential (primary) hypertension (4) Afib Status: Chronic Qualifiers: Atrial fibrillation type: paroxysmal Qualified Codes: I48.0 - Paroxysmal atrial fibrillation Clinical Quality Measures DVT/VTE Risk/Contraindication: Risk Factor Score Per Nursin RFS Level Per Nursing on Admit: 1=Low/No VTE PPX ANGY WATKINS MD Oct 20, 2019 13:34
--- NOTE | 2019-10-20 15:58 | NUR ---
THIS NURSE CLARIFIED WITH DR GONZALEZ THAT PT CAN GO HOME FROM [facility]ARDIOLOGY STANDPOINT. DR GONZALEZ WOULD LIKE PT TO FOLLOW UP IN 1 WEEK WITH VIDEO INTERN.
--- NOTE | 2019-10-20 16:11 | NUR ---
THIS NURSE CLARIFIED WITH DR WATKINS PT IS OKAY TO GO HOME IF PT IS TOLERATING PAIN AND DIET.
--- NOTE | 2019-10-20 19:30 | NUR ---
PT IS C/O MINIMAL PAIN AND TOLERATING A SOFT DIET. THIS NURSE EDUCATED PT AND ON DISCHARGE INSTRUCTIONS, INCISION CARE, AND HOME MEDICATIONS. PT STATED UNDERSTANDING. THIS NURSE ALSO EDUCATED PT ON I.S. USE. PT DEMONSTRATED PROPER USE OF I.S. PT STATED UNDERSTANDING. PT TAKEN DOWN TO CAR VIA WHEELCHAIR WITH BELONGINGS. TO TAKE PT HOME.
[2019-10-21] MEDS ORDERED: cefTRIAXone 1,000 MG/SWFI 10 ML IV PUSH IV SCH ×2 (09:00)
[2019-10-21] MEDS ORDERED: PANTOPRAZOLE 40 MG (PROTONIX) VIAL IV SCH (09:00)
--- NOTE | 2019-10-21 12:43 | Anesthesia-General Post-Op ---
General Patient Condition Mental Status/LOC: Same as Preop Cardiovascular: Satisfactory Nausea/Vomiting: Absent Respiratory: Satisfactory Pain: Controlled Complications: Absent Post Op Complications Complications None Follow Up Care/Instructions Patient Instructions None needed. Anesthesia/Patient Condition Patient Condition Patient is doing well, no complaints, stable vital signs, no apparent adverse anesthesia problems. No complications reported per nursing. DANNA RODRIGUEZ CRNA Oct 21, 2019 12:43
== END 2019-10-20 19:55 | disposition home or self-care (01) ==
LOC: ER 04:17 → ICU 07:34
PROVIDERS: ADMIT Internal Medicine; ATTEND Internal Medicine
DX: K80.12 Calculus of gallbladder with acute and chronic cholecystitis without obstruction (principal); K21.9 Gastro-esophageal reflux disease without esophagitis; I36.1 Nonrheumatic tricuspid (valve) insufficiency; I11.9 Hypertensive heart disease without heart failure; I48.0 Paroxysmal atrial fibrillation; Z79.899 Other long term (current) drug therapy
CPT/HCPCS: 47563; 71045; 71275; 74177; 76000; 80053; 80162; 81000; 82150; 82550; 82553; 83690; 83735; 83874; 83880; 84484; 85025; 85610; 85730; 93005; 93041; 93306; 99284; G0480; 36415; 80320; 88304